=== PATIENT | male | born 2000 | race Caucasian/White ===

== ENCOUNTER 2024-11-06 22:06 | Observation (INO) | payer MEDICAID ==
[~2024-11-06] VITALS: Ht 172.7 cm; Wt 72.1 kg
[2024-11-06 23:03] LABS: BASOPHILS ABSOLUTE AUTO 0.04 K/mm3 (0.00-0.23); BASOPHILS PERCENT AUTO 1 % (0-2); EOSINOPHILS ABSOLUTE AUTO 0.04 K/mm3 (0.00-0.68); EOSINOPHILS PERCENT AUTO 1 % (0-6); Hematocrit 45.9 % (37.0-53.0); Hemoglobin 15.8 g/dL (13.5-17.5); IMMATURE GRAN ABSOLUTE AUTO 0.01 K/mm3 (0.00-0.10); IMMATURE GRAN PERCENT AUTO 0 % (0-1); LYMPHOCYTES ABSOLUTE AUTO 2.49 K/mm3 (0.84-5.20); LYMPHOCYTES PERCENT AUTO 34 % (21-46); MONOCYTES ABSOLUTE AUTO 1.17 K/mm3 (0.16-1.47); MONOCYTES PERCENT AUTO 16 % (4-13); Mean Corpuscular HGB Conc 34.4 g/dL (31.5-36.5); Mean Corpuscular Volume 86 fL (80-100); NEUTROPHILS ABSOLUTE AUTO 3.69 K/mm3 (1.96-9.15); NEUTROPHILS PERCENT AUTO 50 % (41-73); NRBC ABSOLUTE 0.00 K/mm3 (0.00-0.02); NRBC Auto 0.0 /100 WBC (0.0-0.2); Platelet Count 374 K/mm3 (150-400); RDW Coefficient Variation 14.0 % (11.7-14.2); RDW Standard Deviation 42.9 fL (35.1-46.3)
[2024-11-06 23:11] LABS: Source, Urine Clean Catch
[2024-11-06 23:22] LABS: Bilirubin, Urine Neg (Neg); Glucose Qualitative, Urine Neg (Neg); Ketones, Urine Neg (Neg); Leukocyte Esterase, Urine Neg (Neg); Protein, Urine 2+ (Neg); Specific Gravity, Urine 1.020 (1.003-1.022); Urobilinogen, Urine 1+ (Normal)
[2024-11-06 23:32] LABS: Color, Urine Yellow (P-Yellow)
[2024-11-06 23:32] LABS: Ethanol (Alcohol), Blood, Med 110 mg/dL; Salicylate <1.7 mg/dL (2.8-20.0); Thyroid Stimulating Hormone 1.150 uIU/mL (0.360-4.800)
[2024-11-06 23:34] LABS: Red Blood Cells, Urine 0-2 /hpf (0-2); White Blood Cells, Urine 0-2 /hpf (0-5)
[2024-11-06 23:37] LABS: U Amphetamine Screen Not Detected; U Barbituate Screen Not Detected; U Benzodiazapine Screen Not Detected; U Buprenorphine Screen Not Detected; U Cannabinoids Screen Not Detected; U Cocaine Screen Not Detected; U Methadone Screen Not Detected; U Methamphetamine Screen DETECTED; U Opiates Screen Not Detected; U Oxycodone Screen Not Detected; U Phencyclidine Screen Not Detected
[2024-11-06 23:39] LABS: Alanine Aminotransfer (ALT/SGP 18 U/L (12-78); Albumin, Blood 3.9 g/dL (3.4-5.0); Albumin/Globulin Ratio 1.2 (0.8-1.8); Anion Gap 11 mmol/L (3-11); Aspartate Aminotrans (AST/SGOT 23 U/L (12-37); Bilirubin, Total 0.6 mg/dL (0.1-1.0); Blood Urea Nitrogen 11 mg/dL (8-24); CO2, Blood 24 mmol/L (21-32); Calcium, Blood 8.8 mg/dL (8.5-10.1); Chloride, Blood 109 mmol/L (98-108); Creatinine, Blood 0.84 mg/dL (0.60-1.20); Globulin, Blood 3.3 g/dL (2.2-4.0); Glucose, Blood 83 mg/dL (70-99); Potassium, Blood 3.8 mmol/L (3.5-5.5); Sodium, Blood 140 mmol/L (136-145); Total Protein, Blood 7.2 g/dL (6.4-8.2)
[2024-11-06 23:40] LABS: Acetaminophen, Random <2.0 ug/mL (10.0-30.0)
== END 2024-11-07 13:17 | disposition other institution (70) ==
LOC: ER 22:06 → EOR 22:07
PROVIDERS: ADMIT Emergency Medicine
DX: R45.851 Suicidal ideations (principal); F15.10 Other stimulant abuse, uncomplicated; F10.10 Alcohol abuse, uncomplicated
CPT/HCPCS: 80053; 80320; 81001; 84439; 84443; 85025; 99285; G0378; G0480

== ENCOUNTER 2024-11-07 12:21 | Inpatient (IN) | payer MEDICAID ==
[~2024-11-07] VITALS: Ht 172.7 cm; Wt 154.8 kg
[2024-11-07] MEDS ORDERED: Polyethylene Glycol 3350 17 gm PO PRN (13:30)
[2024-11-07] MEDS ORDERED: Ondansetron 4 MG SoluTab MM PRN (13:30)
[2024-11-07 13:35] VITALS: BP 126/86
[2024-11-07] MEDS ORDERED: Haloperidol Lactate Inj. 5 MG/ML Injection IM PRN (13:35)
[2024-11-07] MEDS ORDERED: DiphenhydrAMINE HCl 50 MG/ML 1ML Vial IM PRN (13:40)
[2024-11-07] MEDS ORDERED: Aluminum Hydroxide 320MG/5ML 473 ML PO PRN (13:40)
[2024-11-07 13:55] VITALS: BP 126/86
--- NOTE | 2024-11-07 14:50 | NUR ---
TRANSFER OF CARE TRANSFER OF CARE TO [facility]. ADMIT DONE, CONSENTS SIGNED. PT DENIES SI, HI, AVTH AT THIS CURRENT TIME. EXPRESSED INTENT TO REFUSE ANY MEDICATIONS AT THIS TIME. PLEASANT AND COOPERATIVE OTHERWISE.
--- NOTE | 2024-11-07 16:21 | NUR ---
Summary: Patient who admitted to the U this afternoon appears to be doing well. He is currently lying on his bed, relaxed. He denies Hallucinations, suicidal thinking and pain. He denies any of the CIWA withdrawal symptoms. The patient states he is hungry and looking forward to dinner. Upon coming into the unit, the patient bed was made up with clean bedding. The patient requested an additional blanket, however this was denied. He states "it smells funny", and asked "has any one used it before"? Staff reassured the patient that the bedding was clean, but exchanged the bed spread as was requested, placing the first one in the soiled hold.
[2024-11-07 19:39] VITALS: BP 127/78
--- NOTE | 2024-11-08 04:53 | NUR ---
SHIFT SUMMARY: PT A/O X4. PT IN BED AT THE BEGINNING OF THE SHIFT AFTER DINNER. CIWA = 0 AT THIS TIME AND Q 4 HOURS WITH NO CHANGE IN SCORE. PT DID NOT GET UP FOR SNACK TIME. PT WITH BLUNTED AFFECT. SHORT ANSWERS ON INTERVIEW QUESTIONS. PT STATED THAT HE NEEDED A PLACE TO STAY FOR A COUPLE OF DAYS. DENIES ANY WITHDRAWAL SYMPTOMS OF ALCOHOL. DENIES TO BE SI, HI, AND AVH. WILL CONTINUE TO MONITOR Q 15 MIN.
[2024-11-08] MEDS ORDERED: Multivitamins 1 Tab PO SCH (09:00)
--- NOTE | 2024-11-08 17:27 | NUR ---
SHIFT SUMMARY PT DENIES SI, HI, AVTH. AT THIS TIME. EXPRESSED DESIRE TO BE DISCHARGED "TODAY OR TOMORROW". PT REFUSED LAB DRAW AND CONTINUES TO EXPRESS THAT HE IS NOT INTERESTED IN TAKING MEDS. PT SLEPT/RESTED QUIETLY T/O EXCEPT FOR MEAL TIMES. [facility] IN TODAY TO DISCUSS HOLD W/ PT.
[2024-11-08 19:40] VITALS: BP 126/76
--- NOTE | 2024-11-09 04:04 | NUR ---
SHIFT SUMMARY: PT A/O X4. DENIES SI, HI,ANS AVH. EXPRESSES THAT HE IS HERE "JUST NEED A PLACE TO LAY FOR A COUPLE OF DAYS" REMINDED PT HE IS ON A HOLD AND WILL BE HERE LONGER. HE GOT UP FOR SNACK TIME AND WRAP UP TONIGHT. SLEPT THROUGH THE NIGHT. WILL CONTINUE TO MONITOR.
--- NOTE | 2024-11-09 12:40 | NUR ---
IMPORTANT DISCHARGE INFORMATION PATIENT NOT WANTING OHP, CASE MANAGEMENT,PROVIDERS OR MEDICATIONS. HE WILL BE DISCHARGED TO [facility] FOR ANY OTHER SERVICES. RESOURCES PROVIDED: [employer] FOR [employer], FOOD, CLOTHING. [employer] AND [facility]
--- NOTE | 2024-11-09 13:36 | NUR ---
SHIFT ASSESSMENT: PT DENIED SI, HI, AVH, ANXIETY AND PHYSICAL PAIN. HE REPORTED HIS MOOD , "DECENT." PT REFUSED TO HAVE LABS DRAWN. PT HAS NOT BEEN ACTIVE IN THE PT [place] OR ATTENDED GROUPS. PT WAS PLEASANT AND POLITE. HE LEFT HIS BED FOR MEALS AND SNACKS.
[2024-11-09 20:09] VITALS: BP 122/85
--- NOTE | 2024-11-09 22:39 | NUR ---
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 IN BED FOR THE SHIFT. GOT UP TO EAT SNACK ONLY. DENIES SI,HI, AND AVH. PT STATES HE IS READY TO LEAVE. HE DOESN'T WANT TO CONVERSATE. HE JUST STATES HE IS FINE AND SLEEPY. REMINDED PT IF HE SHOULD NEED ANYTHING TO CONTACT STAFF.
--- NOTE | 2024-11-10 06:01 | NUR ---
SHIFT SUMMARY This RN assumed patient care at midnight. Pt is lying on his bed with eyes closed and appears to be asleep. Respirations regular and unlabored, no apparent distress. Staff continues to monitor q15m for safety and wellness.
[2024-11-10 09:04] VITALS: BP 123/87
--- NOTE | 2024-11-10 09:36 | NUR ---
NURSE NOTE PT RECIEVED A PHONE CALL FROM HIS MOTHER. PT GAVE VERBAL PERMISSION TO ADD HIS MOTHER TO HIS CONTACT LIST AND PT WAS ALLOWED TO SPEAK TO HER ON THE PHONE TO ARRANGE HIS TRANSPORTATION AT DISCHARGE TODAY.
--- NOTE | 2024-11-10 10:50 | NUR ---
DISCHARGE PT A/O X4; DENIES SI, HI, AVTH. PT WISHING TO LEAVE TODAY AND IS TO DC TO THE STREET TODAY. PT HAS PLAN TO BE PICKED UP BY MOTHER AND TO GO WITH HIS MOTHER TO [place]. DC INSTRUCTIONS GONE OVER WITH PT AND PT VERBALIZD UNDERSTANDING. NO NEW MEDICATIONS PRESCRIBED. PT ENCOURAGED TO FOLLOW UP WITH [facility] IF UNABLE TO MAKE IT TO [place]. PT'S BELONGINGS RETURNED AND PT LEFT UNIT AT 1045.
== END 2024-11-10 11:44 | disposition home or self-care (01) | DRG 882 ==
LOC: BHU 12:21
PROVIDERS: ADMIT Psychiatry & Neurology Psychiatry
DX: F43.23 Adjustment disorder with mixed anxiety and depressed mood (principal); Z59.00 Homelessness unspecified; F15.20 Other stimulant dependence, uncomplicated; R45.851 Suicidal ideations; F10.20 Alcohol dependence, uncomplicated
CPT/HCPCS: A9270